=== PATIENT | female | born 1970 | race Caucasian/White ===

== ENCOUNTER 2021-10-06 15:13 | Inpatient (IN) | payer BC ==
[2021-10-06] MEDS ORDERED: MAGNESIUM CITRATE 300 ML BOTTLE PO PRN (17:05)
[2021-10-06] MEDS ORDERED: MAGNESIUM HYDROX 2400MG/30ML ORAL SUSPENSION 30 ML CUP PO PRN (17:05)
[2021-10-06] MEDS ORDERED: MAG HYDROX/AL HYDROX/SIMETH 30 ML UNIT-DOSE CUP PO PRN (17:05)
[2021-10-06] MEDS ORDERED: LOPERAMIDE HCL 2 MG CAPSULE PO PRN (17:05)
[2021-10-06] MEDS ORDERED: BISMUTH SUBSALICYLATE 524 MG/30 ML PO PRN (17:05)
[2021-10-06] MEDS ORDERED: ONDANSETRON *ODT* 4 MG TABLET SL PRN (17:05)
[2021-10-06] MEDS ORDERED: ACETAMINOPHEN 325 MG TABLET (FP) PO PRN (17:05)
[2021-10-06] MEDS ORDERED: BENZOCAINE/MENTHOL (CHLORASEPTIC ) LOZENGE MM PRN (17:05)
[2021-10-06] MEDS ORDERED: methaDONE HCL 10 MG TABLET (FOR DETOX USE ONLY) PO ONE (17:08)
[2021-10-06] MEDS ORDERED: BISACODYL 5 MG TABLET.DR (FP) PO PRN (17:08)
[2021-10-06 17:27] VITALS: BMI 16.1
[2021-10-06] MEDS ORDERED: diazePAM 5 MG TABLET ONE (18:41)
[2021-10-06] MEDS ORDERED: ACETAMINOPHEN 325 MG TABLET (FP) ONE (18:42)
[2021-10-06] MEDS ORDERED: methaDONE HCL 10 MG TABLET (FOR DETOX USE ONLY) ONE (18:42)
[2021-10-06] MEDS: diazePAM 5 MG TABLET PO PRN ×2 (18:52→23:32)
[2021-10-06] MEDS: ACETAMINOPHEN 325 MG TABLET (FP) PO PRN (18:57)
[2021-10-06] MEDS ORDERED: MELATONIN 5 MG TABLETS PO SCH (22:00)
[2021-10-06] MEDS: THIAMINE HCL 100 MG TABLET (FP) PO SCH (23:00)
[2021-10-06] MEDS: hydrOXYzine PAMOATE 25 MG CAPSULE (FP) PO PRN (23:34)
[2021-10-07] MEDS: METHOCARBAMOL 500 MG TABLET PO PRN ×3 (04:10→22:06)
[2021-10-07] MEDS: diazePAM 5 MG TABLET PO PRN ×3 (04:10→18:16)
[2021-10-07] MEDS: IBUPROFEN 400 MG TABLET (FP) PO PRN ×2 (04:10→18:53)
[2021-10-07] MEDS: ACETAMINOPHEN 325 MG TABLET (FP) PO PRN (06:55)
[2021-10-07] MEDS: cloNIDine HCL 0.1 MG TABLET PO PRN (06:55)
[2021-10-07] MEDS: hydrOXYzine PAMOATE 25 MG CAPSULE (FP) PO PRN ×3 (06:56→18:15)
[2021-10-07] MEDS: DICYCLOMINE HCL 10 MG CAPSULE PO PRN (06:58)
[2021-10-07] MEDS ORDERED: methaDONE HCL 10 MG TABLET (FOR DETOX USE ONLY) ONE (08:51)
[2021-10-07 10:47] LABS: HEMATOCRIT 46.2 % (32.4-45.2); HEMOGLOBIN 15.8 GM/dL (10.7-15.3); MCH 32.5 pg (25.7-33.7); MCHC 34.2 g/dl (32.0-36.0); MEAN CELL VOLUME 95.1 fl (80-96); MEAN PLT VOLUME 7.6 fl (7.5-11.1); PLATELET COUNT 352 10^3/uL (134-434); RBC 4.86 M/mm3 (3.60-5.2); RDW 12.9 % (11.6-15.6); WHITE BLOOD COUNT 7.4 K/mm3 (4.0-10.0)
[2021-10-07] MEDS: PRENATAL VITAMINS W/ FOLIC ACID TABLET (FP) PO SCH (10:57)
[2021-10-07 11:04] LABS: CALCIUM 9.6 mg/dL (8.5-10.1)
[2021-10-07 11:05] LABS: ALBUMIN 3.7 g/dl (3.4-5.0); BLOOD UREA NITROGEN 8.8 mg/dL (7-18)
[2021-10-07 11:08] LABS: CREATININE 0.7 mg/dL (0.55-1.3)
[2021-10-07 11:10] LABS: BILIRUBIN,TOTAL 0.8 mg/dL (0.2-1); TOT PROT 6.7 g/dl (6.4-8.2)
[2021-10-07] MEDS: THIAMINE HCL 100 MG TABLET (FP) PO SCH (22:07)
[2021-10-07] MEDS: SUVOREXANT 5 MG TABLET PO PRN (22:08)
[2021-10-08] MEDS: IBUPROFEN 400 MG TABLET (FP) PO PRN (00:57)
[2021-10-08] MEDS: diazePAM 5 MG TABLET PO PRN ×4 (00:58→21:29)
[2021-10-08] MEDS: hydrOXYzine PAMOATE 25 MG CAPSULE (FP) PO PRN ×3 (05:23→21:30)
[2021-10-08] MEDS: PRENATAL VITAMINS W/ FOLIC ACID TABLET (FP) PO SCH (09:19)
[2021-10-08] MEDS: METHOCARBAMOL 500 MG TABLET PO PRN (09:19)
[2021-10-08] MEDS ORDERED: methaDONE HCL 10 MG TABLET (FOR DETOX USE ONLY) PO ONE (10:00)
[2021-10-08] MEDS ORDERED: TRIMETHOBENZAMIDE HCL 200MG/2ML INJ IM ONE (12:46)
[2021-10-08] MEDS ORDERED: LORazepam 2 MG/ML SDV VIAL IM ONE (13:15)
[2021-10-08] MEDS: cloNIDine HCL 0.1 MG TABLET PO PRN (21:29)
[2021-10-08] MEDS: THIAMINE HCL 100 MG TABLET (FP) PO SCH (21:30)
[2021-10-09 00:07] LABS: SARS-CoV-2 NAA Not Detected (Not Detected)
[2021-10-09] MEDS ORDERED: methaDONE HCL 10 MG TABLET (FOR DETOX USE ONLY) ONE (09:42)
[2021-10-09] MEDS: PRENATAL VITAMINS W/ FOLIC ACID TABLET (FP) PO SCH (11:14)
[2021-10-09] MEDS: METHOCARBAMOL 500 MG TABLET PO PRN ×2 (11:14→18:05)
[2021-10-09] MEDS: diazePAM 5 MG TABLET PO PRN ×2 (11:15→16:52)
[2021-10-09] MEDS: hydrOXYzine PAMOATE 25 MG CAPSULE (FP) PO PRN ×3 (11:26→22:08)
[2021-10-09] MEDS: THIAMINE HCL 100 MG TABLET (FP) PO SCH (22:06)
[2021-10-09] MEDS: SUVOREXANT 5 MG TABLET PO PRN (22:06)
[2021-10-10] MEDS: DICYCLOMINE HCL 10 MG CAPSULE PO PRN (01:03)
[2021-10-10] MEDS: IBUPROFEN 400 MG TABLET (FP) PO PRN ×3 (01:04→22:20)
[2021-10-10] MEDS: METHOCARBAMOL 500 MG TABLET PO PRN ×3 (01:04→17:43)
[2021-10-10] MEDS: ACETAMINOPHEN 325 MG TABLET (FP) PO PRN ×2 (04:19→17:42)
[2021-10-10] MEDS: hydrOXYzine PAMOATE 25 MG CAPSULE (FP) PO PRN ×4 (04:19→22:19)
[2021-10-10] MEDS ORDERED: methaDONE HCL 10 MG TABLET (FOR DETOX USE ONLY) PO ONE (10:00)
[2021-10-10] MEDS: PRENATAL VITAMINS W/ FOLIC ACID TABLET (FP) PO SCH (10:07)
[2021-10-10] MEDS: cloNIDine HCL 0.1 MG TABLET PO PRN (17:43)
[2021-10-10] MEDS: THIAMINE HCL 100 MG TABLET (FP) PO SCH (22:18)
[2021-10-10] MEDS: SUVOREXANT 5 MG TABLET PO PRN (22:18)
[2021-10-11] MEDS: METHOCARBAMOL 500 MG TABLET PO PRN (06:04)
[2021-10-11] MEDS: IBUPROFEN 400 MG TABLET (FP) PO PRN (06:04)
[2021-10-11] MEDS: hydrOXYzine PAMOATE 25 MG CAPSULE (FP) PO PRN ×2 (06:06→10:22)
[2021-10-11] MEDS: PRENATAL VITAMINS W/ FOLIC ACID TABLET (FP) PO SCH (10:22)
[2021-10-11] MEDS: ACETAMINOPHEN 325 MG TABLET (FP) PO PRN (10:29)
[2021-10-11 12:59] VITALS: BP 160/91; PULSE 66; TEMP 97.2
[2021-10-11] MEDS: cloNIDine HCL 0.1 MG TABLET PO PRN (13:09)
== END 2021-10-11 15:17 | disposition other institution (70) | DRG 773 ==
LOC: YASAS 15:13 → Y3N 18:38
PROVIDERS: ADMIT Allergy & Immunology; ATTEND Surgery
PROC: HZ2ZZZZ Detoxification Services for Substance Abuse Treatment (ICD-10-PCS; principal; 2021-10-06)
DX: F11.23 Opioid dependence with withdrawal (principal); F17.210 Nicotine dependence, cigarettes, uncomplicated; F19.24 Other psychoactive substance dependence with psychoactive substance-induced mood disorder; G47.00 Insomnia, unspecified; K59.09 Other constipation; D25.9 Leiomyoma of uterus, unspecified; K80.20 Calculus of gallbladder without cholecystitis without obstruction; R10.9 Unspecified abdominal pain; R63.4 Abnormal weight loss; Z68.1 Body mass index [BMI] 19.9 or less, adult
CPT/HCPCS: 36415; 80053; 85027; 86780; 87811; C9803-CS; J0735; U0003; U0005

== ENCOUNTER 2021-10-08 16:08 | Emergency (ER) | payer BC ==
[2021-10-08 16:32] VITALS: BP 142/82; PULSE 74; TEMP 98.3; BMI 19.3
[2021-10-08] MEDS ORDERED: SODIUM CHLORIDE 0.9% 500 ML INFUS.BAG IV ONE (16:43)
[2021-10-08] MEDS ORDERED: ACETAMINOPHEN 1000 MG/100 ML BAG IVPB ONE (16:43)
[2021-10-08] MEDS ORDERED: ACETAMINOPHEN INJECTION 100 ML IVPB ONE (16:58)
[2021-10-08 17:17] LABS: BASO % 0.6 % (0-2.0); EOS % 0.3 % (0-4.5); HEMATOCRIT 40.5 % (32.4-45.2); HEMOGLOBIN 13.8 GM/dL (10.7-15.3); MCH 31.9 pg (25.7-33.7); MCHC 34.1 g/dl (32.0-36.0); MEAN CELL VOLUME 93.6 fl (80-96); MEAN PLT VOLUME 6.8 fl (7.5-11.1); MONO % 3.9 % (3.8-10.2); NEUT % 88.2 % (42.8-82.8); PLATELET COUNT 316 10^3/uL (134-434); RBC 4.33 M/mm3 (3.60-5.2); RDW 12.6 % (11.6-15.6); WHITE BLOOD COUNT 13.3 K/mm3 (4.0-10.0)
[2021-10-08 17:45] LABS: PH,URINE >= 9.0 (5.0-8.0); URINE APPEARANCE CLOUDY; URINE BILIRUBIN NEGATIVE (NEGATIVE); URINE COLOR YELLOW; URINE GLUCOSE (UA) NEGATIVE (NEGATIVE); URINE KETONE NEGATIVE (NEGATIVE); URINE LEUK ESTERASE NEGATIVE (NEGATIVE); URINE NITRITE NEGATIVE (NEGATIVE); URINE PROTEIN NEGATIVE (NEGATIVE); URINE UROBILINOGEN 0.2 mg/dL (0.2-1.0)
[2021-10-08 17:46] LABS: ALBUMIN 3.7 g/dl (3.4-5.0); BLOOD UREA NITROGEN 4.2 mg/dL (7-18); CALCIUM 9.1 mg/dL (8.5-10.1); MAGNESIUM 2.3 mg/dL (1.8-2.4)
[2021-10-08] MEDS ORDERED: methaDONE HCL 10 MG TABLET (FOR DETOX USE ONLY) PO ONE (17:46)
[2021-10-08 17:49] LABS: CREATININE 0.6 mg/dL (0.55-1.3)
[2021-10-08 17:51] LABS: BILIRUBIN,TOTAL 0.4 mg/dL (0.2-1); TOT PROT 6.8 g/dl (6.4-8.2)
[2021-10-08] MEDS ORDERED: methaDONE HCL 10 MG TABLET ONE (17:51)
[2021-10-08] MEDS ORDERED: KETOROLAC TROMETHAMINE 30 MG/1 ML VIAL IVPUSH ONE (18:14)
[2021-10-08] MEDS ORDERED: KETOROLAC TROMETHAMINE 15 MG/ML VIAL ONE (18:26)
[2021-10-08] MEDS ORDERED: diazePAM 5 MG TABLET PO ONE (18:40)
[2021-10-08] MEDS ORDERED: diazePAM 5 MG TABLET ONE (18:46)
[2021-10-08] MEDS ORDERED: Methylnaltrexone Bromide 12 MG/0.6 ML KIT SQ ONE (19:49)
== END 2021-10-08 20:53 | disposition home or self-care (01) ==
LOC: JER 16:08
PROC: 3E0333Z Introduction of Anti-inflammatory into Peripheral Vein, Percutaneous Approach (ICD-10-PCS; principal; 2021-10-08)
PROC: 3E0333Z Introduction of Anti-inflammatory into Peripheral Vein, Percutaneous Approach (ICD-10-PCS; 2021-10-08)
DX: R10.32 Left lower quadrant pain (principal); R91.1 Solitary pulmonary nodule
CPT/HCPCS: 36415; 74176-TC; 80053; 81003; 83735; 84703; 85025; 87086; 96374; 96375; 99284-25

== ENCOUNTER 2021-10-11 15:33 | Inpatient (IN) | payer BC ==
[2021-10-11] MEDS ORDERED: MAGNESIUM HYDROX 2400MG/30ML ORAL SUSPENSION 30 ML CUP PO PRN (17:23)
[2021-10-11] MEDS ORDERED: P-EPHED 60MG/TRIPROLIDI 2.5MG TABLET PO PRN (17:23)
[2021-10-11] MEDS ORDERED: LOPERAMIDE HCL 2 MG CAPSULE PO PRN (17:23)
[2021-10-11] MEDS ORDERED: guaiFENesin 200 MG/10 ML 10 ML UNIT-DOSE CUPS PO PRN (17:23)
[2021-10-11] MEDS ORDERED: MAGNESIUM CITRATE 300 ML BOTTLE PO PRN (17:23)
[2021-10-11] MEDS ORDERED: BENZOCAINE/MENTHOL (CHLORASEPTIC ) LOZENGE MM PRN (17:23)
[2021-10-11] MEDS ORDERED: NICOTINE POLACRILEX 2 MG GUM BUC PRN (17:23)
[2021-10-11] MEDS ORDERED: MAG HYDROX/AL HYDROX/SIMETH 30 ML UNIT-DOSE CUP PO PRN (17:23)
[2021-10-11] MEDS: IBUPROFEN 400 MG TABLET (FP) PO PRN (17:45)
[2021-10-11] MEDS: hydrOXYzine PAMOATE 25 MG CAPSULE (FP) PO PRN (17:45)
[2021-10-11] MEDS: METHOCARBAMOL 500 MG TABLET PO PRN (19:06)
[2021-10-11] MEDS: THIAMINE HCL 100 MG TABLET (FP) PO SCH (21:42)
[2021-10-11] MEDS: ACETAMINOPHEN 325 MG TABLET (FP) PO PRN (21:43)
[2021-10-11] MEDS: MELATONIN 5 MG TABLETS PO SCH (21:58)
[2021-10-11] MEDS ORDERED: MELATONIN 5 MG TABLETS PO SCH (22:00)
[2021-10-12] MEDS: hydrOXYzine PAMOATE 25 MG CAPSULE (FP) PO PRN ×5 (00:05→21:14)
[2021-10-12] MEDS: IBUPROFEN 400 MG TABLET (FP) PO PRN ×3 (01:16→17:14)
[2021-10-12] MEDS: METHOCARBAMOL 500 MG TABLET PO PRN ×4 (04:38→21:15)
[2021-10-12] MEDS: ACETAMINOPHEN 325 MG TABLET (FP) PO PRN ×3 (04:38→23:34)
[2021-10-12] MEDS ORDERED: cloNIDine HCL 0.1 MG TABLET PO ONE (08:00)
[2021-10-12] MEDS ORDERED: cloNIDine HCL 0.1 MG TABLET PO PRN (10:20)
[2021-10-12] MEDS ORDERED: ONDANSETRON *ODT* 4 MG TABLET SL PRN (10:22)
[2021-10-12] MEDS: PRENATAL VITAMINS W/ FOLIC ACID TABLET (FP) PO SCH (11:16)
[2021-10-12] MEDS ORDERED: QUEtiapine FUMARATE 50 MG TABLET PO SCH (14:15)
[2021-10-12] MEDS: DOCUSATE SODIUM 100 MG CAPSULE (FP) PO SCH ×2 (14:26→21:14)
[2021-10-12] MEDS: THIAMINE HCL 100 MG TABLET (FP) PO SCH (21:14)
[2021-10-12] MEDS: QUEtiapine FUMARATE 100 MG TABLET (FP) PO SCH (21:14)
[2021-10-12] MEDS: MELATONIN 5 MG TABLETS PO SCH (21:15)
[2021-10-12] MEDS ORDERED: DICYCLOMINE HCL 10 MG CAPSULE PO ONE (23:05)
[2021-10-13] MEDS: ACETAMINOPHEN 325 MG TABLET (FP) PO PRN (03:42)
[2021-10-13] MEDS: hydrOXYzine PAMOATE 25 MG CAPSULE (FP) PO PRN (03:42)
[2021-10-13] MEDS: DOCUSATE SODIUM 100 MG CAPSULE (FP) PO SCH ×2 (07:36→15:44)
[2021-10-13 08:24] VITALS: TEMP 98.4
[2021-10-13] MEDS ORDERED: LORazepam 2 MG/ML SDV VIAL IM ONE ×2 (09:30→15:00)
[2021-10-13 09:41] VITALS: BP 145/88; PULSE 97
[2021-10-13] MEDS: QUEtiapine FUMARATE 100 MG TABLET (FP) PO SCH (13:18)
[2021-10-13] MEDS: PRENATAL VITAMINS W/ FOLIC ACID TABLET (FP) PO SCH (13:18)
[2021-10-13] MEDS ORDERED: QUEtiapine FUMARATE 50 MG TABLET PO SCH (22:00)
== END 2021-10-13 18:30 | disposition short-term general hospital (02) | DRG 772 ==
LOC: YASAS 15:33 → Y5N 15:38
PROVIDERS: ADMIT Allergy & Immunology; ATTEND Psychiatry & Neurology Pain Medicine
PROC: HZ42ZZZ Group Counseling for Substance Abuse Treatment, Cognitive-Behavioral (ICD-10-PCS; principal; 2021-10-11)
DX: F11.20 Opioid dependence, uncomplicated (principal); F17.210 Nicotine dependence, cigarettes, uncomplicated; F31.9 Bipolar disorder, unspecified; F22 Delusional disorders; F50.9 Eating disorder, unspecified; F41.9 Anxiety disorder, unspecified; G47.00 Insomnia, unspecified; K59.00 Constipation, unspecified; D25.9 Leiomyoma of uterus, unspecified; R63.4 Abnormal weight loss; Z68.1 Body mass index [BMI] 19.9 or less, adult
CPT/HCPCS: J0735

== ENCOUNTER 2021-10-13 09:57 | Emergency (ER) | payer BC ==
[2021-10-13 10:49] VITALS: BP 142/88; PULSE 85; TEMP 98.4; BMI 13.6
[2021-10-13 11:02] LABS: BASO % 1.4 % (0-2.0); EOS % 0.2 % (0-4.5); HEMATOCRIT 41.4 % (32.4-45.2); HEMOGLOBIN 14.2 GM/dL (10.7-15.3); LYMPH % 5.1 % (8-40); MCH 31.8 pg (25.7-33.7); MCHC 34.2 g/dl (32.0-36.0); MEAN CELL VOLUME 92.8 fl (80-96); MEAN PLT VOLUME 6.9 fl (7.5-11.1); MONO % 4.2 % (3.8-10.2); NEUT % 89.1 % (42.8-82.8); PLATELET COUNT 402 10^3/uL (134-434); RBC 4.46 M/mm3 (3.60-5.2); RDW 12.2 % (11.6-15.6); WHITE BLOOD COUNT 12.1 K/mm3 (4.0-10.0)
[2021-10-13] MEDS ORDERED: KETOROLAC TROMETHAMINE 30 MG/1 ML VIAL IVPUSH ONE (11:08)
[2021-10-13] MEDS ORDERED: KETOROLAC TROMETHAMINE 15 MG/ML VIAL ONE (11:11)
[2021-10-13 11:40] LABS: VENOUS BASE EXCESS 2.9 mmol/L (-2-2); VENOUS O2 SATURATION 97.3 % (70-80); VENOUS PCO2 43.5 mmHg (38-52); VENOUS PH 7.423 (7.310-7.410)
[2021-10-13 12:06] LABS: METHADONE, UR NEGATIVE (NEGATIVE); PHENCYCLIDINE,URINE NEGATIVE (NEGATIVE)
[2021-10-13 12:07] LABS: OPIATES, URI NEGATIVE (NEGATIVE)
[2021-10-13 12:09] LABS: ALBUMIN 3.8 g/dl (3.4-5.0); ALK PHOS 88 U/L (45-117); ANION GAP 6 MMOL/L (8-16); BILIRUBIN,TOTAL 0.6 mg/dL (0.2-1); BLOOD UREA NITROGEN 5.2 mg/dL (7-18); CALCIUM 9.4 mg/dL (8.5-10.1); CHLORIDE 102 mmol/L (98-107); CO2 29 mmol/L (21-32); COCAINE, UR NEGATIVE (NEGATIVE); CREATININE 0.5 mg/dL (0.55-1.3); GLUCOSE,RANDOM 107 mg/dL (74-106); MAGNESIUM 2.3 mg/dL (1.8-2.4); PHOSPHOROUS 2.7 mg/dL (2.5-4.9); SGOT/AST 62 U/L (15-37); SGPT/ALT 132 U/L (13-61); SODIUM 137 mmol/L (136-145); TOT PROT 6.6 g/dl (6.4-8.2); URINE AMPHETAMINES NEGATIVE (NEGATIVE); URINE BARBITURATES NEGATIVE (NEGATIVE); URINE BENZODIAZEPINES POSITIVE (NEGATIVE)
== END 2021-10-13 13:34 | disposition home or self-care (01) ==
LOC: JER 09:57
PROC: 3E0233Z Introduction of Anti-inflammatory into Muscle, Percutaneous Approach (ICD-10-PCS; principal; 2021-10-13)
DX: R56.9 Unspecified convulsions (principal)
CPT/HCPCS: 36415; 80053; 80307; 82550; 82803; 83605; 83735; 84100; 84443; 84703; 85025; 93005; 93010; 96372; 99284-25